=== PATIENT | male | born 1975 | race Asian ===

== ENCOUNTER 2018-07-02 09:47 | Day surgery (SDC) | payer OTHER ==
[~2018-07-02] VITALS: Ht 180.3 cm; Wt 78.9 kg
[2018-07-02] VITALS (8 sets, daily range): BP systolic 116–121; BP diastolic 72–80; PULSE 60–70; RESP 11–22; Ht 180.3 cm; Wt 78.9 kg
[~2018-07-02 09:47] MED LIST: CEFAZOLIN 2 GM/50 ML (PMX) 50 ML IVPB ONE; DEXAMETHASONE 4 MG/ML 5 ML INJ ONE; ONDANSETRON 4 MG INJ ONE; SOD CHLORIDE 0.9% 1,000 ML IV SCH
[2018-07-02] MEDS ORDERED: BUPIVACAINE 0.25% (MPF) 30 ML INJ ONE (13:00)
[2018-07-02] MEDS ORDERED: POLYMYXIN/BACITRACIN 1L IRRIG ONE (13:00)
--- NOTE | 2018-07-02 13:02 | PREAC ---
Date/Time of Note Date/Time of Note DATE: 07/02/18 TIME: 13:01 Anesthesia Eval and Record Evaluation Time Pre-Procedure Interview DATE: 07/02/18 TIME: 13:01 Age 43 Sex male NPO: 8 hrs Preoperative diagnosis right inguinal hernia Planned procedure open right inguinal hernia repair Past Medical History Past Medical History: None Surgery & Anesthesia Issues No known issue Meds Anticoagulation: No Beta Chemo within 24 hr: No Reason Beta Chemo not given: Pt. not on B-Chemo No Active Prescriptions or Reported Meds Current Medications Sodium Chloride 1,000 ml @ 75 mls/hr [id number] IV Last administered on 07/02/18at 11:18; Admin Dose 75 MLS/HR; Start 07/02/18 at 07:00; Stop 07/02/18 at 20:19 Meds reviewed: Yes Allergies Coded Allergies: No Known Drug Allergies (Unverified Allergy, Unknown, 07/02/18) Allergies Reviewed: Yes Labs/Studies Labs Reviewed: Reviewed by anesthesiologist Result Diagram: 07/02/18 1110 07/02/18 1110 Laboratory Tests 07/02/18 11:10 test: N/A Pre-procedure Exam Last vitals Vital Signs Date Temp Pulse Resp B/P (MAP) Pulse Ox O2 O2 Flow FiO2 Time Delivery Rate 07/02/18 97.8 70 16 120/80 99 Room Air 11:13 (93) Airway: Adequate mouth opening, Adequate thyromental dist Mallampati: Mallampati I Teeth: Normal Lung: Normal Heart: Normal ASA Physical Status ASA physical status: 1 Emergency: None Planned Anesthetic General/MAC: LMA Planned Pain Management Parenteral pain med Pre-operative Attestations Prior to commencing anesthesia and surgery, the patient was re-evaluated, there was verification of: *The patient's identity *The results of appropriate recent lab work and preoperative vital signs *The above evaluation not changing prior to induction *Anesthetic plan, risk benefits, alternative and complications discussed with patient/family; questions answered; patient/family understands, accepts and wishes to proceed. ANGELA TOM July 02, 2018 13:02
[2018-07-02] MEDS ORDERED: ROCURONIUM 50 MG INJ ONE (13:15)
[2018-07-02] MEDS ORDERED: PROPOFOL 20 ML ONE (13:15)
[2018-07-02] MEDS ORDERED: LIDOCAINE 2% (SDV) 5 ML INJ ONE (13:15)
[2018-07-02] MEDS ORDERED: CEFAZOLIN 1 GM INJ ONE (13:23)
[2018-07-02] MEDS ORDERED: NEOSTIGMINE 3 MG/3 ML SYRINGE ONE ×2 (14:03→14:12)
--- NOTE | 2018-07-02 14:07 | OPR ---
Date/Time of Note Date/Time of Note DATE: 07/02/18 TIME: 14:04 Operative Report Procedure Date: July 02, 2018 Preoperative Diagnosis right incarcerated inguinal hernia Postoperative Diagnosis same Operation/Procedure Performed open right incarcerated inguinal hernia repair with small ultrapro plug mesh Surgeon see signature line Lpn Or Medical Assistant none Anesthesia Type: general Estimated Blood Loss: 0 - 10 ml's Transfusion none Specimen none Grafts/Implants none Complications none Pt Condition Post Procedure: stable Indications This is a 43-year-old male with a right incarcerated inguinal hernia. He requires surgical repair. Risks alternatives benefits and percent were di scussed the patient. Patient expressed understanding and consents to the operation. Procedure Description Patient is taken to the OR and prepped and draped in usual sterile fashion. Surgical timeout was performed. IV antibiotics were given. Right inguinal oblique incision made with a 10 blade. Dissection with cardioscan to the extremity fascia. The external fascia was opened with a 15 blade. This incision extended medially inferiorly and lateral superiorly with Metzenbaum scissors. Cord structures identified and encircled with a [place] drain. Incarcerated indirect hernia was identified. Lysis of adhesions performed and the incarcerated hernia was reduced. Hernia defect was bolstered with the disc portion of the ultra pro hernia system mesh. The disc is secured in place the running Prolene from the pubic tubercle along the shelving is unlimited. Supe riorly the disc is secured to the internal oblique with interrupted 3-0 Vicryl. Onlay mesh was secured in a sterile fashion with a running 0 Prolene from the pubic tubercle along the shelving single limit. Straps are created reapproximate around the cord structures to re-create the inguinal ring with interrupted 0 Prolene. Onlay mesh was secured to enter oblique with interrupted 3-0 Vicryl. Externally fascia is closed with running 3-0 Vicryl. Francesco's fascia was closed with interrupted 3-0 Vicryl. Skin is closed using inzorb observable skin stapler. Therapeutic contains local anesthesia was injected at the incision site. Dry dressings were applied. Darryl BELTRAN July 02, 2018 14:07
[2018-07-02] MEDS ORDERED: GLYCOPYRROLATE 0.4 MG INJ ONE (14:12)
--- NOTE | 2018-07-02 14:23 | PAC ---
Date/Time of Note Date/Time of Note DATE: 07/02/18 TIME: 14:22 Post-Anesthesia Notes Post-Anesthesia Note Last documented vital signs Vital Signs Date Temp Pulse Resp B/P (MAP) Pulse Ox O2 O2 Flow FiO2 Time Delivery Rate 07/02/18 97.8 70 16 120/80 99 Room Air 1422 (93) Activity: WNL Respiratory function: WNL Cardiovascular function: WNL Mental status: Baseline Pain reasonably controlled: Yes Hydration appropriate: Yes Nausea/Vomiting absent: Yes ANGELA TOM July 02, 2018 14:23
[2018-07-02] MEDS ORDERED: FENTAnyl 50 MCG/ML VIAL IV PRN ×3 (14:30)
[2018-07-02] MEDS ORDERED: KETOROLAC 30 MG INJ IV PRN (14:30)
[2018-07-02] MEDS ORDERED: HYDROCODONE/APAP (5/325) TAB PO ONE (14:30)
[2018-07-02] MEDS ORDERED: LABETALOL HCL 20MG INJ IV PRN (14:30)
[2018-07-02] MEDS ORDERED: hydrALAzine 20 MG INJ IV PRN (14:30)
[2018-07-02] MEDS ORDERED: ALBUTEROL 0.083% (NEB) 2.5 MG/3 ML AMP HHN PRN (14:30)
[2018-07-02] MEDS ORDERED: OXYCODONE/ACETAMINOPHEN (5/325) TAB PO PRN ×2 (14:30)
[2018-07-02] MEDS ORDERED: MEPERIDINE 25 MG INJ IV PRN (14:30)
[2018-07-02] MEDS ORDERED: EPHEDrine SULFATE 50 MG/5 ML SYG IV PRN (14:30)
[2018-07-02] MEDS ORDERED: HYDROmorphONE 1 MG/5 ML IV SYRINGE IV PRN ×3 (14:30)
[2018-07-02] MEDS ORDERED: ONDANSETRON 4 MG INJ IV PRN (14:30)
[2018-07-02] MEDS ORDERED: DIPHENHYDRAMINE 50 MG INJ IV PRN (14:30)
== END 2018-07-02 19:00 | disposition home or self-care (01) ==
LOC: SDS 09:47
PROVIDERS: ATTEND Surgery
DX: K40.30 Unilateral inguinal hernia, with obstruction, without gangrene, not specified as recurrent (principal)
CPT/HCPCS: 49507; 71045; 80053; 85025; 85610; 85730; 93005; C1781; J0690; J1100; J1170; J2405; J3010; Z7512; Z7610; J2710